=== PATIENT | female | born 1995 | race African-American/Black ===

== ENCOUNTER 2017-03-12 08:09 | Emergency (ER) | payer OTHER ==
[~2017-03-12] VITALS: Ht 165.1 cm; Wt 60.0 kg
[2017-03-12 08:10] VITALS: BP 125/70; PULSE 86; RESP 25; TEMP 99.4; O2SAT 93
[2017-03-12 08:21] VITALS: BP 126/80; PULSE 96; RESP 18; O2SAT 93
[2017-03-12] MEDS ORDERED: DEXAMETHASONE SOD PHOS 4 MG/ML VIAL IV PUSH ONE (08:30)
[2017-03-12] MEDS ORDERED: SODIUM CHLOR 0.9% 1000 ML INJ 1,000 ML IV ONE (08:30)
[2017-03-12] MEDS ORDERED: ONDANSETRON HCL 4 MG/2 ML VIAL IV PUSH ONE (08:30)
[2017-03-12] MEDS ORDERED: KETOROLAC TROMETHAMINE 30 MG/ML (IVP) VIAL IV PUSH ONE (08:30)
--- NOTE | 2017-03-12 08:36 | PD ---
HPI Chief Complaint: Pain: Acute or Chronic Time Seen by Provider: 08:20 Travel History International Travel<30 days: No Contact w/Intl Traveler<30days: No History of Present Illness HPI 21-year-old female presents with vomiting and diarrhea that started 2 days ago and has now gone away. She then developed nasal congestion and cough and lost her voice. She states now she feels short of breath. She states no other history the patient mainly is able to answer questions by yes or no or holding up a number given her voice is very raspy when she attempts to talk. PFSH Past Medical History Medical History: Denies Significant Hx Past Surgical History Surgical History: No Previous Surgery Social History Tobacco Use: No Substance Use: No Allergies-Medications (Allergen,Severity, Reaction): Coded Allergies: No Known Allergies (Unverified , 03/12/17) Reported Meds & Prescriptions Reported Meds & Active Scripts Active Augmentin (Amoxicillin-Clavulanate) 875-125 Mg Tab 1 Tab PO BID 7 Days Prednisone 50 Mg Tab 50 Mg PO DAILY 5 Days Review of Systems ROS Limitations: Speech Impaired (raspy currently) Except as stated in HPI: all other systems reviewed are Neg Physical Exam Exam Limitations: Other: (difficulty talking) Narrative General: No apparent distress, no drooling noted ENT: Posterior oropharyngx with erythema noted, uvula midline, no exudate, external auditory canals are normal. Bilateral TM clear Neck: Neck is supple, no meningeal signs, trachea is midline Cardiovascular: Regular rate and rhythm Lungs: No increased respiratory effort noted, CTA bilaterally Abdomen: Soft, NT, ND, no rebound or guarding Extremities: No edema Neuro: Awake, motor and sensation grossly intact, raspy speech noted Data Data Last Documented VS Vital Signs Date Time Temp Pulse Resp B/P (MAP) Pulse Ox O2 Delivery O2 Flow Rate FiO2 03/12/17 10:27 95 Room Air 03/12/17 08:48 75 20 03/12/17 08:47 2.00 03/12/17 08:10 99.4 Orders Orders Complete Blood Count With Diff (03/12/17 08:27) Comprehensive Metabolic Panel (03/12/17 08:27) Lactic Acid Sepsis Protocol (03/12/17 08:27) Magnesium (Mg) (03/12/17 08:27) Influenzae A/B Antigen (03/12/17 08:27) Blood Culture (03/12/17 08:27) Chest, Single Ap (03/12/17 08:27) Ecg Monitoring (03/12/17 08:27) Iv Access Insert/Monitor (03/12/17 08:27) Oximetry (03/12/17 08:27) Ondansetron Inj (Zofran Inj) (03/12/17 08:30) Sodium Chlor 0.9% 1000 Ml Inj (Ns 1000 M (03/12/17 08:30) Ketorolac Inj (Toradol Inj) (03/12/17 08:30) Soft Tissue Neck (03/12/17 ) Dexamethasone Inj (Decadron Inj) (03/12/17 08:30) Ct Soft Tiss Neck W Iv Cont (03/12/17 ) Iohexol 350 Inj (Omnipaque 350 Inj) (03/12/17 10:05) Ed Discharge Order (03/12/17 10:35) Labs Laboratory Tests Test 03/12/17 08:35 White Blood Count 9.5 TH/MM3 Red Blood Count 4.46 MIL/MM3 Hemoglobin 13.7 GM/DL Hematocrit 41.0 % Mean Corpuscular Volume 92.1 FL Mean Corpuscular Hemoglobin 30.8 PG Mean Corpuscular Hemoglobin Concent 33.5 % Red Cell Distribution Width 13.2 % Platelet Count 330 TH/MM3 Mean Platelet Volume 8.1 FL Neutrophils (%) (Auto) 67.6 % Lymphocytes (%) (Auto) 15.9 % Monocytes (%) (Auto) 9.5 % Eosinophils (%) (Auto) 6.4 % Basophils (%) (Auto) 0.6 % Neutrophils # (Auto) 6.4 TH/MM3 Lymphocytes # (Auto) 1.5 TH/MM3 Monocytes # (Auto) 0.9 TH/MM3 Eosinophils # (Auto) 0.6 TH/MM3 Basophils # (Auto) 0.1 TH/MM3 CBC Comment DIFF FINAL Differential Comment Blood Urea Nitrogen 9 MG/DL Creatinine 0.80 MG/DL Random Glucose 86 MG/DL Total Protein 8.3 GM/DL Albumin 3.9 GM/DL Calcium Level 9.2 MG/DL Magnesium Level 2.2 MG/DL Alkaline Phosphatase 76 U/L Aspartate Amino Transf (AST/SGOT) 19 U/L Alanine Aminotransferase (ALT/SGPT) 23 U/L Total Bilirubin 1.1 MG/DL Sodium Level 138 MEQ/L Potassium Level 3.1 MEQ/L Chloride Level 103 MEQ/L Carbon Dioxide Level 25.6 MEQ/L Anion Gap 9 MEQ/L Estimat Glomerular Filtration Rate 92 ML/MIN Lactic Acid Level 1.1 mmol/L [facility] Medical Decision Making Medical Screen Exam Complete: Yes Emergency Medical Condition: Yes Medical Record Reviewed: Yes (past history confirmed) Interpretation(s) CBC & BMP Diagram 03/12/17 08:35 Total Protein 8.3 H, Albumin 3.9, Calcium Level 9.2, Magnesium Level 2.2, Alkaline Phosphatase 76, Aspartate Amino Transf (AST/SGOT) 19, Alanine Aminotransferase (ALT/SGPT) 23, Total Bilirubin 1.1 H Last 24 hours Impressions Chest X-Ray 03/12/17 0827 Signed Impressions: Service Date/Time: Sunday, March 12, 2017 09:10 - CONCLUSION: Normal examination. Mary Chavis MD Soft Tissue Neck X-Ray 03/12/17 0000 Signed Impressions: Service Date/Time: Sunday, March 12, 2017 09:11 - CONCLUSION: Normal examination. Mary Chavis MD Neck CT 03/12/17 0000 Signed Impressions: Service Date/Time: Sunday, March 12, 2017 10:04 - CONCLUSION: Bilateral acute sinusitis. Areas of patchy air trapping identified within the lung apices. No other abnormality noted.. Mary Chavsi MD Differential Diagnosis Influenza, pharyngitis, abscess, epiglottitis, pneumonia Narrative Course Patient here with oxygen levels in the low 90s. She has obvious raspy voice but no drooling. Will check blood work, chest x-ray, soft tissue x-ray and place on Decadron, Toradol and IV fluids. If x-ray shows no findings will proceed with CT CT shows acute sinusitis, patient 95 on room air, no tachypnea noted, patient typing on her computer and appears improved, patient's voice is also improved, no drooling noted, patient agrees to antibiotic and steroids with close outpatient follow-up. Given return instructions. Diagnosis Primary Impression: Sinusitis Qualified Codes: J01.90 - Acute sinusitis, unspecified Additional Impression: Laryngitis Patient Instructions: General Instructions Additional Instructions: return as needed, follow with primary tommorrow, tylenol and motrin as needed for pain Med/Other Pt SpecificInfo: Prescription(s) given Scripts Amoxicillin-Clavulanate (Augmentin) 875-125 Mg Tab 1 TAB PO BID for Infection for 7 Days, #14 TAB 0 Refills Prov: Clara Lackye MD 03/12/17 Prednisone (Prednisone) 50 Mg Tab 50 MG PO DAILY for 5 Days, #5 TAB 0 Refills Prov: Clara Lackey MD 03/12/17 Disposition: 01 DISCHARGE HOME Condition: Stable Clara Lackey MD Mar 12, 2017 08:36
[2017-03-12 08:47] VITALS: O2SAT 95
[2017-03-12 09:04] LABS: AUTOMATED NEUTROPHIL # 6.4 TH/MM3 (1.8-7.7); BASOPHIL # 0.1 TH/MM3 (0-0.2); BASOPHIL % 0.6 % (0.0-2.0); EOSINOPHIL # 0.6 TH/MM3 (0-0.4); EOSINOPHIL % 6.4 % (0.0-4.0); HEMOGLOBIN 13.7 GM/DL (11.6-15.3); LYMPH % 15.9 % (9.0-44.0); LYMPHOCYTE # 1.5 TH/MM3 (1.0-4.8); MEAN CELL VOLUME 92.1 FL (80.0-100.0); MEAN CORPUSCULAR HEMOGLOBIN 30.8 PG (27.0-34.0); MEAN CORPUSCULAR HGB CONC 33.5 % (32.0-36.0); MEAN PLATELET VOLUME 8.1 FL (7.0-11.0); MONO % 9.5 % (0.0-8.0); MONOCYTE # 0.9 TH/MM3 (0-0.9); NEUT % 67.6 % (16.0-70.0); PLATELET COUNT 330 TH/MM3 (150-450); RED BLOOD COUNT 4.46 MIL/MM3 (4.00-5.30); RED CELL DISTRIBUTION WIDTH 13.2 % (11.6-17.2); WHITE BLOOD COUNT 9.5 TH/MM3 (4.0-11.0)
[2017-03-12 09:19] LABS: ALBUMIN 3.9 GM/DL (3.4-5.0); ALT (GPT) 23 U/L (9-42); AST (GOT) 19 U/L (16-38); BICARBONATE 25.6 MEQ/L (21.0-32.0); BLOOD UREA NITROGEN 9 MG/DL (7-18); CALCIUM 9.2 MG/DL (8.5-10.1); CHLORIDE 103 MEQ/L (98-107); GLOMERULAR FILTRATION RATE 92 ML/MIN (>89); GLUCOSE,RANDOM 86 MG/DL (74-106); MAGNESIUM 2.2 MG/DL (1.5-2.5); SODIUM (NA) 138 MEQ/L (136-145)
[2017-03-12 09:22] LABS: ALKALINE PHOSPHATASE 76 U/L (45-117); TOTAL BILIRUBIN ADULT 1.1 MG/DL (0.2-1.0); TOTAL PROTEIN 8.3 GM/DL (6.4-8.2)
--- NOTE | 2017-03-12 09:42 | RADRPT ---
EXAM DATE/TIME: 03/12/2017 09:11 [facility] COMPARISON: No previous studies available for comparison. INDICATIONS : Cough, Short of Breath MEDICAL HISTORY : None. SURGICAL HISTORY : None. ENCOUNTER: Initial ACUITY: 1 week PAIN SCORE: 0/10 LOCATION: neck FINDINGS: Two view examination of the soft tissues of the neck demonstrates the hypopharyngeal airway to have a grossly normal configuration. The trachea is midline. No radiopaque foreign bodies are seen. CONCLUSION: Normal examination. Mary Chavis MD on March 12, 2017 at 9:39 Board Certified Radiologist. This report was verified electronically.
--- NOTE | 2017-03-12 09:42 | RADRPT ---
EXAM DATE/TIME: 03/12/2017 09:10 [facility] COMPARISON: No previous studies available for comparison. INDICATIONS : Short of Breath, Cough MEDICAL HISTORY : None. SURGICAL HISTORY : None. ENCOUNTER: Initial ACUITY: 1 week PAIN SCORE: 5/10 LOCATION: chest FINDINGS: A single view of the chest demonstrates the lungs to be symmetrically aerated without evidence of mas s, infiltrate or effusion. The cardiomediastinal contours are unremarkable. Osseous structures are intact. CONCLUSION: Normal examination. Mary Chavis MD on March 12, 2017 at 9:38 Board Certified Radiologist. This report was verified electronically.
[2017-03-12] MEDS ORDERED: IOHEXOL 350 MG/ML 10 ML VIAL (for RAD DIAG) IVCONTRAST ONE (10:05)
--- NOTE | 2017-03-12 10:19 | RADRPT ---
EXAM DATE/TIME: 03/12/2017 10:04 [facility] COMPARISON: No previous studies available for comparison. INDICATIONS : Vomiting, irritation to throat and no voice. IV CONTRAST: 75 cc Omnipaque 350 (iohexol) IV RADIATION DOSE: 14.52 CTDIvol (mGy) MEDICAL HISTORY : None SURGICAL HISTORY : None ENCOUNTER: Initial ACUITY: 2 days PAIN SCALE: 7/10 LOCATION: Bilateral neck TECHNIQUE: Volumetric scanning of the neck was performed. Using automated exposure control and adjustment of th e mA and/or kV according to patient size, radiation dose was kept as low as reasonably achievable to obtain optimal diagnostic quality images. DICOM format image data is available electronically for r eview and comparison. FINDINGS: There is bilateral mucosal thickening identified within the maxillary sinuses, moderate on the left t tee the right. Mild bilateral ethmoid air cell opacification and mucosal thickening. The imaged lung apices demonstrate patchy areas of air trapping. NASOPHARYNX: The nasopharyngeal airway has a normal configuration. No mucosal thickening or mass is seen. OROPHARYNX: The intrinsic muscles of the tongue are symmetric. The tonsillar pillars are intact. The prevertebr al soft tissues are not thickened. LARYNX: The supraglottic, glottic, and infraglottic structures are intact. PARAPHARYNGEAL: The parapharyngeal space is intact. SALIVARY GLANDS: The parotid and submandibular glands are intact. LYMPH NODES: No enlarged or necrotic-appearing nodes. THYROID: Homogeneous enhancement without evidence of nodule. BONES: Unremarkable. CONCLUSION: Bilateral acute sinusitis. Areas of patchy air trapping identified within the lung apices. No other a bnormality noted.. Mary Chavis MD on March 12, 2017 at 10:14 Board Certified Radiologist. This report was verified electronically.
[2017-03-12 10:27] VITALS: O2SAT 95
[2017-03-12] MEDS ORDERED: PRED50 PO (10:35)
[2017-03-12] MEDS ORDERED: AUGM875T3 PO (10:35)
== END 2017-03-12 10:59 | disposition home or self-care (01) ==
LOC: NEPC 08:09
DX: J01.90 Acute sinusitis, unspecified (principal); J04.0 Acute laryngitis; R06.02 Shortness of breath
CPT/HCPCS: 70360; 70491; 71045; 80053; 83605; 83735; 85025; 87040; 87804; 96361; 96374; 96375; 99285; J1100; J1885; J2405; J7030; Q9967